=== PATIENT | male | born 1975 | race Caucasian/White ===

== ENCOUNTER 2025-08-22 14:50 | Inpatient (IN) | payer SELFPAY ==
[2025-08-22] VITALS (17 sets, daily range): BP systolic 136–187; BP diastolic 61–87; PULSE 80–104; RESP 12–27; TEMP 36.9–38.4; O2SAT 86–95; BMI 50.1
--- NOTE | 2025-08-22 15:42 | ED_ITS ---
HPI - Abdominal Pain General Chief Complaint: Abdominal Pain Stated Complaint: abd/back/leg px Time Seen by Provider: 08/22/25 15:42 Source: patient Mode of arrival: Family Vehicle History of Present Illness HPI narrative: 50-year-old gentleman morbidly obese presents with abdominal pain radiating to the back and then down the left groin started sudden onset this morning. He did have 2 bowel movements earlier. Patient denies any chest pain, hematuria, penile discharge, testicular pain, diaphoresis, nausea, vomiting, fever, chills, body aches. Other than what is stated 14 point review of system is negative Related Data Allergies Allergy/AdvReac Type Severity Reaction Status Date / Time No Known Drug Allergies Allergy Verified 08/22/25 19:57 Review of Systems Review of Systems ROS Unobtainable: All systems reviewed & are unremarkable except as noted in HPI and below Exam Narrative Exam Narrative: GENERAL: [50] year old patient appears stated age. Well-developed patient, in mild distress. HEAD: Atraumatic. Normocephalic. EYES: Pupils equal round and reactive. Extraocular motions intact. No scleral icterus. No injection or drainage. NECK: Trachea midline. Non tender CARDIOVASCULAR: Regular rate and rhythm without murmurs, gallops, or rubs. RESPIRATORY: Clear to auscultation. Breath sounds equal bilaterally. No wheezes, rales, or rhonchi. GASTROINTESTINAL: Abdomen soft, non-tender, nondistended. EXTREMITIES: No edema or joint tenderness. BACK: Nontender without deformity or crepitance. No flank tenderness. NEURO: AOx3. SKIN: No rash or erythema of visible areas Initial Vital Signs Initial Vital Signs: Vital Signs Temperature 98.4 F 08/22/25 15:11 Pulse Rate 80 08/22/25 15:11 Respiratory Rate 16 08/22/25 15:11 Blood Pressure 148/66 H 08/22/25 15:11 Pulse Oximetry 94 08/22/25 15:11 Oxygen Delivery Method Room Air 08/22/25 15:11 Course Orders Ordered: ED Orders 08/22/25 15:21 EKG-12 Lead Stat 08/22/25 15:53 CT abdomen pelvis w con Stat 08/22/25 18:00 Complete Blood Count AUTO DIFF Stat Comprehensive Metabolic Panel Stat Lipase Stat Ondansetron HCl (Ondansetron 4 Mg/2 Ml Inj) 4 mg IV NOW PRN PRN Reason: Nausea And Vomiting Ondansetron HCl (Ondansetron 4 Mg Odt) 4 mg PO NOW PRN PRN Reason: Nausea And Vomiting Discontinued Medications Hydromorphone HCl (Hydromorphone 1 Mg/Ml Syringe) 1 mg IV NOW ONE Stop: 08/22/25 15:54 Last Admin: 08/22/25 18:08 Dose: 1 mg Documented By: ABEL Lactated Ringer's (Lactated Ringers) 1,000 mls @ 1,000 mls/hr IV BOLUS ONE Stop: 08/22/25 16:52 Last Admin: 08/22/25 18:15 Dose: 1,000 mls/hr Documented By: ABEL Piperacillin Sod/Tazobactam (Sod 4.5 gm/ Sodium Chloride) 100 mls @ 200 mls/hr IV NOW ONE Stop: 08/22/25 18:47 Last Infusion: 08/22/25 19:05 Dose: 0 mls/hr Documented By: Admin: 08/22/25 18:59 Dose: 200 mls/hr Documented By: ADRIANA Ketorolac Tromethamine (Ketorolac 30 Mg/Ml Vial) 15 mg IV NOW ONE Stop: 08/22/25 15:54 Last Admin: 08/22/25 18:08 Dose: 15 mg Documented By: ABEL Vital Signs Vital signs: Vital Signs - 8 hr 08/22/25 15:11 Temperature 98.4 F Pulse Rate 80 Respiratory Rate 16 Blood Pressure 148/66 H Pulse Oximetry 94 Oxygen Delivery Method Room Air MDM - Abdominal Pain Lab Data 08/22/25 18:00 08/22/25 18:00 Labs: Lab Results 08/22/25 Range/Units 18:00 WBC 17.3 H (4.5-11.0) X10^3/uL RBC 4.14 L (4.5-5.9) X10^6/uL Hgb 11.9 L (13.5-17.5) g/dL Hct 36.9 L (41-53) % MCV 89.2 (80-100) fL MCH 28.9 (26-34) PG MCHC 32.4 (30-36) % RDW 13.7 (11.6-14.8) % Plt Count 446 H (150-400) X10^3/uL Neut % (Auto) Not Reportable Lymph % (Auto) Not Reportable [place] % (Auto) Not Reportable Eos % (Auto) Not Reportable Baso % (Auto) Not Reportable Lymph # (Auto) Not Reportable [place] # (Auto) Not Reportable Baso # (Auto) Not Reportable Total Counted 100 Seg Neutrophils % 61.0 (38-70) % Band Neutrophils % 29.0 H (3-7) % Lymphocytes % (Manual) 5.0 L (25-45) % Monocytes % (Manual) 3.0 (2-11) % Basophils % (Manual) 2.0 H (0-1) % Neutrophils # (Manual) 73848 H (2417-3407) /uL RBC Morphology Normal morphology Sodium 137 (137-145) mmol/L Potassium 4.2 (3.4-5.1) mmol/L Chloride 103 (98-107) mmol/L Carbon Dioxide 25 (22-32) mmol/L BUN 17 (9-20) mg/dL Creatinine 0.72 (0.66-1.25) mg/dL Estimated GFR > 60 (>60) mL/min BUN/Creatinine Ratio 23.6 H (6-22) Glucose 116 H (70-99) mg/dL Calcium 9.2 (8.4-10.2) mg/dL Total Bilirubin 1.0 (0.2-1.3) mg/dL AST 26 (17-59) IU/L ALT 39 (<50) IU/L Alkaline Phosphatase 75 (38-126) U/L Total Protein 8.6 H (6.3-8.2) g/dL Albumin 4.7 (3.5-5.0) g/dL Globulin 3.9 (1.7-4.1) g/dL Albumin/Globulin Ratio 1.2 (1.0-2.8) Lipase 36 (23-300) U/L ECG Data Interpretation: Sinus Tach HR 101 CO 166 QRS [address]-t wave change No pprevious ekg to compare MDM Narrative Medical decision making narrative: All lab work, vital signs, nurse triage note, medication list, previous ER visits, and all imaging studies reviewed. CT scan showed gastric perforation with resultant pneumoperitoneum and complex fluid within the abdomen. masslike thickening of the distal gastric body concerning for possible mass lesion. WBC 17.3 hemoglobin 11.9 platelet 446 sodium 137 potassium 4.2 chloride 103 CO2 25 and 17 creatinine 0.72 glucose 116 T bili 1.0 LFTs normal lipase 36. case discussed with Dr. San surgeon on-call who will be taking the patient directly to the OR. differential diagnosis kidney stone kidney infection diverticulitis constipation pancreatitis perforation. Discharge Plan Departure Patient Disposition: Admitted As Inpatient Clinical Impression: Gastric perforation Admit Date/Time: 08/22/25 19:16 Admit Provider: Reginaldo San
--- NOTE | 2025-08-22 15:53 | DI.CT.S_ITS ---
PROCEDURE: CT ABDOMEN PELVIS W CON INDICATIONS: abd back pain TECHNIQUE: After the administration of intravenous contrast, axial sections acquired from the lung bases to the pubic symphysis. Coronal and sagittal reformats were performed. For radiation dose reduction, the following was used: automated exposure control, adjustment of mA and/or kV according to patient size. COMPARISON: None. FINDINGS: Image quality: Diagnostic. Lower Chest: Bibasilar atelectasis. ABDOMEN: Liver: No solid mass. Gallbladder: Layering sludge. No calcified stone. Biliary ducts: No biliary dilation. Pancreas: No ductal dilation. Spleen: Size is within normal limits. Adrenal Glands: No adrenal nodules. Kidneys and Ureters: No hydronephrosis. No solid mass. No complex renal cystic lesion which requires follow up. Stomach and Bowel: Perforation of the gastric lesser curvature which results in large volume pneumoperitoneum and complex fluid within the dependent pelvis and along the bilateral dependent peritoneum. There is moderate stranding and thickening of the stomach distal body, which may be reactive however cannot exclude underlying mass lesion. Mural thickening of the small bowel in the inferior abdomen, favored to be reactive. There is diverticulosis without diverticulitis of the sigmoid colon. There is a normal appendix. Peritoneum: No abnormal intraperitoneal fluid. No free air. Ventral Wall: No significant ventral hernia. Abdominal Nodes: No retroperitoneal or mesenteric adenopathy by size criteria. Vessels: Aorta and inferior vena cava are normal in size. PELVIS: Pelvic Organs: Unremarkable. Bladder: No bladder wall thickening, accounting for underdistention. Pelvic Nodes: No enlarged lymph nodes. Miscellaneous: No inguinal hernias are seen. Bones: No aggressive osseous abnormality. Chronic compression deformity of L1 which results in 50 percent anterior and central vertebral body height loss. IMPRESSION: 1. Gastric perforation with resultant pneumoperitoneum and complex fluid within the abdomen. 2. Masslike thickening of the distal gastric body, concerning for possible mass lesion. Recommend correlation with direct visualization (intra-operative versus endoscopy). Communication: The above findings were discussed with the ordering clinician, Dr. Venegas of the emergency room, by Dr. Beckwith via telephone on 08/22/2025 at 6:46 p.m. PST. Dictated by: Manjeet Beckwith M.D. on 08/22/2025 at 18:40 Approved by: Manjeet Beckwith M.D. on 08/22/2025 at 18:46
[2025-08-22] MEDS: KETOROLAC 30 MG/ML VIAL 15 MG IV (18:08)
[2025-08-22] MEDS: LACTATED RINGERS 1,000 ML 1000 ML IV (18:15)
[2025-08-22 18:16] LABS: Hematocrit 36.9 % (41-53); Hemoglobin 11.9 g/dL (13.5-17.5); Mean Corpuscular HGB Conc 32.4 % (30-36); Mean Corpuscular Hemoglobin 28.9 PG (26-34); Mean Corpuscular Volume 89.2 fL (80-100); Platelet Count 446 X10^3/uL (150-400)
[2025-08-22 18:36] LABS: Alanine Aminotransferase 39 IU/L (<50); Albumin 4.7 g/dL (3.5-5.0); Albumin Globulin Ratio 1.2 (1.0-2.8); Alkaline Phosphatase 75 U/L (38-126); Blood Urea Nitrogen 17 mg/dL (9-20); Calcium 9.2 mg/dL (8.4-10.2); Carbon Dioxide 25 mmol/L (22-32); Chloride 103 mmol/L (98-107); Estimated Glomerular Filt Rate > 60 mL/min (>60); Globulin 3.9 g/dL (1.7-4.1); Glucose 116 mg/dL (70-99); HEMOLYSIS < 15 (0-50); Lipase 36 U/L (23-300); Potassium 4.2 mmol/L (3.4-5.1); Sodium 137 mmol/L (137-145); Total Protein 8.6 g/dL (6.3-8.2)
[2025-08-22 18:49] LABS: Add Manual Diff / Slide Review YES
[2025-08-22 18:56] LABS: Band Neutrophils Percent 29.0 % (3-7); Basophils Percent Manual 2.0 % (0-1); Lymphocytes Percent Manual 5.0 % (25-45); Monocytes Percent Manual 3.0 % (2-11); Neutrophils Absolute Manual 15570 /uL (3000-5900); RBC Morphology Normal Morphology; Segmented Neutrophils Percent 61.0 % (38-70); Total Cells Counted 100
[2025-08-22] MEDS: PIPERACILLIN/TAZO 4.5 GM in SODIUM CHLORIDE 0.9% 100 ML IV ×2 (18:59→23:45)
--- NOTE | 2025-08-22 19:19 | P.HP_ITS ---
History of Present Illness History of Present Illness Date Patient Seen: 08/22/25 Time Patient Seen: 19:19 Chief complaint: abd/back/leg px Narrative: Itz Stone is a 50 year old man who presented to the emergency room with several hours of abdominal pain radiating to his back. No changes to his health prior to today. A CT scan showed free air with a likely gastric perforation. Thickening of the distal stomach was noted by the radiologist. He had an EGD and colonoscopy about three year ago at [facility] for GI bleeding. He does not recall any abnormalities on that exam. Meds Home Medications and Allergies Allergies Allergy/AdvReac Type Severity Reaction Status Date / Time No Known Drug Allergies Allergy Verified 08/22/25 15:13 Exam Vital Signs (past 8 hours): - 08/22/25 15:11 Temperature 98.4 F Pulse Rate 80 Respiratory Rate 16 Blood Pressure 148/66 H Pulse Oximetry 94 Oxygen Delivery Method Room Air Oxygen Delivery Method Room Air Narrative Exam Narrative: Abdomen is distended with tunde peritonitis Objective Labs 08/22/25 18:00 08/22/25 18:00 Labs: Laboratory Results - last 24 hr 08/22/25 18:00 WBC 17.3 H RBC 4.14 L Hgb 11.9 L Hct 36.9 L MCV 89.2 MCH 28.9 MCHC 32.4 RDW 13.7 Plt Count 446 H Neut % (Auto) Not Reportable Lymph % (Auto) Not Reportable [place] % (Auto) Not Reportable Eos % (Auto) Not Reportable Baso % (Auto) Not Reportable Lymph # (Auto) Not Reportable [place] # (Auto) Not Reportable Baso # (Auto) Not Reportable Total Counted 100 Seg Neutrophils % 61.0 Band Neutrophils % 29.0 H Lymphocytes % (Manual) 5.0 L Monocytes % (Manual) 3.0 Basophils % (Manual) 2.0 H Neutrophils # (Manual) 50009 H RBC Morphology Normal morphology Sodium 137 Potassium 4.2 Chloride 103 Carbon Dioxide 25 BUN 17 Creatinine 0.72 Estimated GFR > 60 BUN/Creatinine Ratio 23.6 H Glucose 116 H Calcium 9.2 Total Bilirubin 1.0 AST 26 ALT 39 Alkaline Phosphatase 75 Total Protein 8.6 H Albumin 4.7 Globulin 3.9 Albumin/Globulin Ratio 1.2 Lipase 36 Assessment & Plan Assessment and plan (1) Gastric perforation: Status: Acute Plan I explained to Itz that he has a hole in his stomach and needs emergency surgery. I described an exploratory laparotomy, omental patch, washout and placment of two drains. He is receiving antibiotics in the emergency room now. Time-Based Coding :: [TOTAL MINUTES] spent with patient and on the chart (including review of chart, obtaining history, exam, reviewing outside data, placing orders, documenting exam and treatment plan, and counseling patient) on [DATE]. PROFEE Technical Support Director Document charge(s): No
[2025-08-22] MEDS: ALBUTEROL 2.5 MG/3 ML NEB (ADULT) INH (19:25)
--- NOTE | 2025-08-22 19:29 | EKG_ITS ---
[facility] [address] [place] [address] Test Date: 2025-08-22 Pat Name: Itz Stone Department: [facility] Room: 90B Gender: Male Certified Peer Specialist: GRACE : 1975 Requested By: Order Number: [id number] Reading MD: Julian Lea MD Measurements Intervals Elliott Rate: 101 P: 28 MT: 166 QRS: -33 QRSD: 128 T: 37 QT: 352 QTc: 456 Interpretive Statements Sinus tachycardia Left axis deviation Right bundle branch block NO PRIOR TRACING Electronically Signed On 08-23-2025 7:43:02 PST by Julian Lea MD
--- NOTE | 2025-08-22 20:26 | SUR.OPER ---
Supine on padded OR bed, head on pillow, arms secured on padded arm boards at <90 degrees abduction, legs uncrossed, safety belt at thigh, blankets under bilateral arms to pt comfort, final positioning approved by providertape over blanket over lower legs.
[2025-08-22] MEDS: ACETAMINOPHEN IV 1,000 MG/100 ML VIAL 400 MG IV (20:50)
--- NOTE | 2025-08-22 21:43 | P.OP_ITS ---
Operative Date/Time/Diagnoses Date of procedure: 08/22/25 Time of procedure: 21:43 Pre-op diagnosis: Perforated gastric ulcer Post-op diagnosis: same Procedure & Clinicians Procedure: Exploratory laparotomy Omental patch of gastric perforation Peritoneal lavage Same procedure(s) as scheduled: Yes Surgeon: Reginaldo San Assisted?: No Anesthesia Type: General Operative Notes Findings: 1 cm round perforation in the anterior wall of the distal stomach with peritoneal contamination Applied: drain(s) Estimated Blood Loss (mL): 25 Procedure in detail: The patient is a morbidly obese 50-year-old man who presented to the emergency room with abdominal pain and was found to have a perforated gastric ulcer on CT. He was consented for exploratory laparotomy. The patient was on Zosyn. The patient was brought to the operating room, placed on the table in the supine position and general endotracheal anesthesia was induced. The abdomen was prepped and draped in the usual fashion and a time-out was performed. A 20 cm upper midline incision was created and the abdominal cavity was entered under direct vision. There was copious contamination within the peritoneal cavity indicative of a perforated gastric ulcer. After some exploration a 1 cm round perforation was encountered in the anterior wall of the distal third of the stomach. The surrounding gastric tissue was firm and woody for 2-3 cm around the perforation. An adjacent tongue of omentum was mobilized to create a patch which was secured with 2 2-0 silk sutures to the surrounding serosa. We then irrigated all quadrants of the abdomen with 6 L of warm saline. We then placed two 19 round Indra drains across the omental patch. One drain was brought out through a right stab incision and one drain was brought out through a left stab incision. Some local was injected in his the fascia and the fascia was closed with a running 0 PDS supported by multiple 0 interrupted Vicry l sutures. The skin was closed with franko. Dressings were applied. The patient was awakened and brought to recovery room. Specimen: None Complications: none Post-operative Condition: stable Disposition: PACU
[2025-08-23] VITALS (12 sets, daily range): BP systolic 98–152; BP diastolic 51–70; PULSE 82–91; RESP 13–23; TEMP 36.6–37.2; O2SAT 90–95
[2025-08-23] MEDS: LACTATED RINGERS 1,000 ML 100 ML IV (00:09)
[2025-08-23 00:45] LABS: MRSA (Nasal) PCR NOT DETECTED (Not Detect)
[2025-08-23 05:42] LABS: Add Manual Diff / Slide Review NO; Hematocrit 32.1 % (41-53); Hemoglobin 10.5 g/dL (13.5-17.5); Lymphocytes Absolute Auto 600 /uL (1100-4500); Mean Corpuscular HGB Conc 32.7 % (30-36); Mean Corpuscular Hemoglobin 28.9 PG (26-34); Mean Corpuscular Volume 88.3 fL (80-100); Platelet Count 441 X10^3/uL (150-400)
[2025-08-23 05:45] LABS: Blood Urea Nitrogen 20 mg/dL (9-20); Calcium 8.2 mg/dL (8.4-10.2); Carbon Dioxide 24 mmol/L (22-32); Chloride 104 mmol/L (98-107); Estimated Glomerular Filt Rate > 60 mL/min (>60); Glucose 147 mg/dL (70-99); HEMOLYSIS < 15 (0-50); Magnesium 1.6 mg/dL (1.6-2.3); Potassium 4.5 mmol/L (3.4-5.1); Sodium 137 mmol/L (137-145)
--- NOTE | 2025-08-23 06:28 | PC.NURSE ---
restaurant shift leader RN note pt arrived from PACU, drowsy, oriented x4, VSS, afebrile, SR with BBB, lungs wheezes t/o, RT called and breathing treatment give, O2 sats 88-94% on 2-3L NC, pt snores when asleep, abd large, tender and soft, hypo BS, NGT to R nare, no order for suction, pt denies nausea, midline dsg CDI, x2 LIDIA drains with serosang drainage, c/o abd pain, prn analgesic with effect, meds and labs as ordered, call vasquez within reach, care ongoing
--- NOTE | 2025-08-23 06:48 | PC.NURSE ---
0645-pt bladder scanned, 60ml noted, pt denies need to void at this time
[2025-08-23] MEDS: ALBUTEROL/IPRATROPIUM 3 ML AMPUL INH ×2 (08:40→20:00)
[2025-08-23] MEDS: MAGNESIUM SULFATE 2 GM/50 ML PIGGYBACK IV (08:53)
[2025-08-23] MEDS: PIPERACILLIN/TAZO 4.5 GM in SODIUM CHLORIDE 0.9% 100 ML IV ×3 (08:53→22:33)
--- NOTE | 2025-08-23 09:01 | PM.PN.IH.1 ---
Subjective Subjective Date Patient Seen: 08/23/25 Time Patient Seen: 09:01 Interval history: No major events overnight. Complains of discomfort from NG tube. Exam Vital Signs (past 8 hours): - 08/23/25 02:00 08/23/25 07:40 08/23/25 08:40 Pulse Rate 82 86 83 Respiratory Rate 13 23 16 Blood Pressure 109/52 L 116/53 L Pulse Oximetry 95 90 L 92 Oxygen Delivery Method Nasal Cannula Oxygen Flow Rate 2 0 3 Fraction of Inspired Oxygen 32 Fraction of Inspired Oxygen 32 SaO2/FiO2 Ratio 281 Oxygen Delivery Method Nasal Cannula Oxygen Flow Rate 3 Narrative Exam Narrative: Drains with scant serosanguinous output Dressings CDI Objective Labs 08/23/25 05:10 08/23/25 05:10 Labs: Laboratory Results - last 24 hr 08/22/25 08/22/25 08/23/25 18:00 23:00 05:10 WBC 17.3 H 17.0 H RBC 4.14 L 3.64 L Hgb 11.9 L 10.5 L Hct 36.9 L 32.1 L MCV 89.2 88.3 MCH 28.9 28.9 MCHC 32.4 32.7 RDW 13.7 13.5 Plt Count 446 H 441 H Neut % (Auto) Not Reportable 89.7 H Lymph % (Auto) Not Reportable 3.5 L [place] % (Auto) Not Reportable 6.7 Eos % (Auto) Not Reportable 0.0 L Baso % (Auto) Not Reportable 0.1 Neut # (Auto) 56285 H Lymph # (Auto) Not Reportable 600 L [place] # (Auto) Not Reportable 1100 H Eos # (Auto) 0 Baso # (Auto) Not Reportable 0 Total Counted 100 Seg Neutrophils % 61.0 Band Neutrophils % 29.0 H Lymphocytes % (Manual) 5.0 L Monocytes % (Manual) 3.0 Basophils % (Manual) 2.0 H Neutrophils # (Manual) 12472 H RBC Morphology Normal morphology Sodium 137 137 Potassium 4.2 4.5 Chloride 103 104 Carbon Dioxide 25 24 BUN 17 20 Creatinine 0.72 0.95 Estimated GFR > 60 > 60 BUN/Creatinine Ratio 23.6 H 21.1 Glucose 116 H 147 H Calcium 9.2 8.2 L Magnesium 1.6 Total Bilirubin 1.0 AST 26 ALT 39 Alkaline Phosphatase 75 Total Protein 8.6 H Albumin 4.7 Globulin 3.9 Albumin/Globulin Ratio 1.2 Lipase 36 Nasal Screen MRSA (PCR) Not detected PFSH Social History household members: spouse Smoking Status: Current every day smoker alcohol intake: current Assessment & Plan Assessment and plan (1) Gastric perforation: Status: Acute Plan Postop day 1 following exploratory laparotomy with omental patch for perforated gastric ulcer Continue NG tube and drains Continue Zosyn, Protonix Start Lovenox Out of bed Time-Based Coding :: [TOTAL MINUTES] spent with patient and on the chart (including review of chart, obtaining history, exam, reviewing outside data, placing orders, documenting exam and treatment plan, and counseling patient) on [DATE]. Quality VTE Deep Vein Thrombosis/Pulmonary Embolism Present on Admission: No PROFEE Machine Feeder Floorperson Document charge(s): No
[2025-08-23] MEDS: SODIUM CHLORIDE 0.9% 1,000 ML 150 ML IV ×3 (09:45→22:33)
[2025-08-23] MEDS: ENOXAPARIN 40 MG/0.4 ML SYRINGE SUBCUT ×2 (11:46→20:11)
[2025-08-23] MEDS: PANTOPRAZOLE 40 MG VIAL IV ×2 (11:46→20:11)
[2025-08-24] VITALS (22 sets, daily range): BP systolic 108–161; BP diastolic 51–70; PULSE 81–96; RESP 10–25; TEMP 36.7–36.8; O2SAT 90–98
[2025-08-24] MEDS: SODIUM CHLORIDE 0.9% 1,000 ML 150 ML IV ×2 (05:14→12:00)
[2025-08-24 05:20] LABS: Add Manual Diff / Slide Review NO; Hematocrit 30.8 % (41-53); Hemoglobin 9.9 g/dL (13.5-17.5); Lymphocytes Absolute Auto 900 /uL (1100-4500); Mean Corpuscular HGB Conc 32.3 % (30-36); Mean Corpuscular Hemoglobin 28.8 PG (26-34); Mean Corpuscular Volume 89.1 fL (80-100); Platelet Count 390 X10^3/uL (150-400)
[2025-08-24 05:29] LABS: Blood Urea Nitrogen 16 mg/dL (9-20); Calcium 8.3 mg/dL (8.4-10.2); Carbon Dioxide 27 mmol/L (22-32); Chloride 104 mmol/L (98-107); Estimated Glomerular Filt Rate > 60 mL/min (>60); Glucose 106 mg/dL (70-99); HEMOLYSIS < 15 (0-50); Potassium 4.1 mmol/L (3.4-5.1); Sodium 138 mmol/L (137-145)
[2025-08-24] MEDS: PIPERACILLIN/TAZO 4.5 GM in SODIUM CHLORIDE 0.9% 100 ML IV ×3 (06:22→22:40)
--- NOTE | 2025-08-24 06:57 | PC.NURSE ---
pt a&ox4, c/o mod amt pain in abd, prn analgesics with effect, lungs exp wheezes and decreased, O2 sats >92% on3L NC when awake, desats to 70s when asleep with mouth open/snoring, oximask 4L placed and O2 sats improved when sleeping, NGT resecured, draining bile, pt c/o of NGT being irritating, abd round soft with no BS, pt denies flatus, midline dsg CDI, bilat abd LIDIA drains putting out small amts serous/serosang drainage, voiding dark jones yellow urine via urinal, call vasquez within reach, care ongoing
[2025-08-24 07:11] LABS: Magnesium 2.4 mg/dL (1.6-2.3)
[2025-08-24] MEDS: PANTOPRAZOLE 40 MG VIAL IV ×2 (09:29→22:39)
[2025-08-24] MEDS: ENOXAPARIN 40 MG/0.4 ML SYRINGE SUBCUT ×2 (09:29→22:40)
[2025-08-24] MEDS: ALBUTEROL/IPRATROPIUM 3 ML AMPUL INH ×2 (09:42→20:14)
[2025-08-24] MEDS: BENZOCAINE/MENTHOL 1 LOZ PKT 1 EACH PO (09:47)
--- NOTE | 2025-08-24 14:17 | PM.PN.IH.1 ---
Subjective Subjective Date Patient Seen: 08/24/25 Time Patient Seen: 12:30 Interval history: POD#2 repair gastric perforation with omental patch C/O sore throat associated with NGT NGT minimal output LIDIA drains 30cc total last night, serous Exam Vital Signs (past 8 hours): - 08/24/25 07:00 08/24/25 08:13 08/24/25 13:00 Temperature 98.0 F 98.1 F Pulse Rate 81 86 Respiratory Rate 17 18 Blood Pressure 161/70 H 136/59 L Pulse Oximetry 97 93 Oxygen Delivery Method Nasal Cannula Oximask Oxygen Flow Rate 4 0 Fraction of Inspired Oxygen 32 SaO2/FiO2 Ratio 281 Oxygen Delivery Method Nasal Cannula,Oximask Oxygen Flow Rate 0 Narrative Exam Narrative: Midline incision dressing CDI, no erythema, tenderness appropriate for postop, LIDIA drains serous, no GI contents Objective Labs 08/24/25 05:00 08/24/25 05:00 Labs: Laboratory Results - last 24 hr 08/24/25 05:00 WBC 16.2 H RBC 3.45 L Hgb 9.9 L Hct 30.8 L MCV 89.1 MCH 28.8 MCHC 32.3 RDW 13.9 Plt Count 390 Neut % (Auto) 85.2 H Lymph % (Auto) 5.8 L [place] % (Auto) 8.3 Eos % (Auto) 0.4 L Baso % (Auto) 0.3 Neut # (Auto) 66131 H Lymph # (Auto) 900 L [place] # (Auto) 1300 H Eos # (Auto) 100 Baso # (Auto) 0 Sodium 138 Potassium 4.1 Chloride 104 Carbon Dioxide 27 BUN 16 Creatinine 0.71 Estimated GFR > 60 BUN/Creatinine Ratio 22.5 H Glucose 106 H Calcium 8.3 L Magnesium 2.4 H PFSH Social History household members: spouse Smoking Status: Current every day smoker alcohol intake: current Assessment & Plan Assessment and plan (1) Gastric perforation: Status: Acute Plan POD#2 gastric perforation Continue PPI D/C NGT today Sips of non-carbonated clears Monitor LIDIA output Ambulate Decrease IVF rate DVT prophylaxis, Lovenox Time-Based Coding :: [TOTAL MINUTES] spent with patient and on the chart (including review of chart, obtaining history, exam, reviewing outside data, placing orders, documenting exam and treatment plan, and counseling patient) on [DATE]. Quality VTE Deep Vein Thrombosis/Pulmonary Embolism Present on Admission: No IH PROFEE Electron Beam Machine Welder Setter Document charge(s): Yes Charge Codes Subsequent inpatient/observation care: [id number]
--- NOTE | 2025-08-24 15:24 | CM.DANOTE ---
Initial DCP Assessment Note. Review EMR and PT Interview. Met with patient at bedside to discuss discharge needs.PT is alert x 4 sitting up in chair. No acute distress. Independent. Lives with family.. Payor:??Wilder GUILLEN PCP: Summary & Plan: 50 y/o male arrived to the ED via POV c/o abd pain. Admitted INPT. Dx. Gastric Perforation. Plan: Surgery. Advance diet as tolerate. pain control. Discharge Planning/Care Management CM Discharge Assessment Start: 08/22/25 19:18 Freq: Status: Active Protocol: Document 08/24/25 15:14 SM (Rec: 08/24/25 15:24 [id number]) Discharge Planning Assessment Assigned Discharge Ember Block RN Certified Composites Technician Provider Dr. Phillips Insurance Comment [place]. [facility] [place]. Advance Directives? No History Provided By Patient,Family Member Prior Living Apartment/Condo Arrangements Household Members spouse Type of Drives own vehicle transporation used prior to admit Independent with ADL Yes 's Is patient alert and Yes oriented? Caregiver for No Another Barriers to No Discharge Referrals Initiated None needed Review Status In Process Please Provide Date 08/24/25 Initial DC Assessment Was Performed Next Review Type Continued Stay Review Document 08/24/25 15:24 SM (Rec: 08/24/25 15:24 [id number]) Discharge Planning Assessment Assigned Discharge Ember Block RN Certified Composites Technician Provider Dr. Phillips Insurance Comment [place]. [facility] [place] Advance Directives? No History Provided By Patient,Family Member Prior Living Apartment/Condo Arrangements Household Members spouse Type of Drives own vehicle transporation used prior to admit Independent with ADL Yes 's Is patient alert and Yes oriented? Caregiver for No Another Barriers to No Discharge Referrals Initiated None needed Review Status In Process Please Provide Date 08/24/25 Initial DC Assessment Was Performed Next Review Type Continued Stay Review
[2025-08-24] MEDS: SODIUM CHLORIDE 0.9% 1,000 ML 100 ML IV (22:40)
[2025-08-25] VITALS (34 sets, daily range): BP systolic 131–145; BP diastolic 58–65; PULSE 79–97; RESP 16–26; TEMP 36.7–37.4; O2SAT 87–99
[2025-08-25] MEDS: PIPERACILLIN/TAZO 4.5 GM in SODIUM CHLORIDE 0.9% 100 ML IV ×3 (06:31→22:45)
[2025-08-25] MEDS: ALBUTEROL/IPRATROPIUM 3 ML AMPUL INH ×2 (07:54→18:37)
[2025-08-25] MEDS: ENOXAPARIN 40 MG/0.4 ML SYRINGE SUBCUT ×2 (08:19→20:23)
[2025-08-25] MEDS: PANTOPRAZOLE 40 MG VIAL IV ×2 (08:20→20:24)
--- NOTE | 2025-08-25 08:57 | PM.PN.IH.1 ---
Subjective Subjective Date Patient Seen: 08/25/25 Time Patient Seen: 08:57 Interval history: POD#3 Tolerated clear liquids yesterday No n/v c/o fluid in his lungs due to not receiving his home Lasix dose Exam Vital Signs (past 8 hours): - 08/25/25 04:46 08/25/25 07:00 08/25/25 07:55 Temperature 99.4 F Pulse Rate 84 82 Respiratory Rate 19 18 Blood Pressure 145/65 H Pulse Oximetry 99 94 Oxygen Delivery Method Nasal Cannula Oximask Room Air Oxygen Flow Rate 3 Fraction of Inspired Oxygen 24 SaO2/FiO2 Ratio 391 Oxygen Delivery Method Room Air Oxygen Flow Rate 3 Const General: comfortable Resp Effort & Inspection: normal respiratory effort Cardio Rate: regular rate GI Other: ABD: soft, appropriate tenderness for postop; midline dressing CDI, drains serous Extrem General: no calf tenderness Objective Labs 08/24/25 05:00 08/24/25 05:00 PFS Social History household members: spouse Smoking Status: Current every day smoker alcohol intake: current Assessment & Plan Assessment and plan (1) Gastric perforation: Status: Acute Plan POD#3 oversew gastric perf, omental patch Tolerated clears yesterday No n/v Advance to full liquids LIDIA output declinin/355/80; 50/120/30, serous character, without GI contents Oral contrast study not available on ; no clinical evidence for leak HLIV Resume home meds Ambulating Lovenox/SCDs for VTE prophylaxis I.S. for pulmonary toilet Time-Based Coding :: [TOTAL MINUTES] spent with patient and on the chart (including review of chart, obtaining history, exam, reviewing outside data, placing orders, documenting exam and treatment plan, and counseling patient) on [DATE]. Quality VTE Deep Vein Thrombosis/Pulmonary Embolism Present on Admission: No IH PROFEE Facility Maintenance Worker Document charge(s): Yes Charge Codes Subsequent inpatient/observation care: [id number]
[2025-08-25] MEDS: FUROSEMIDE 20 MG TABLET PO (08:58)
[2025-08-25] MEDS: GABAPENTIN 600 MG TABLET PO ×2 (08:59→20:22)
[2025-08-25] MEDS: CYCLOBENZAPRINE 10 MG TABLET PO ×2 (08:59→20:22)
--- NOTE | 2025-08-25 10:54 | CM.DPC ---
DCP Cont. Reviewed EMR and team rounds for pt's medical status and updates. Per Hospitalist, pt is advancing to full clears diet today. Monitoring for any final home d/c needs.
[2025-08-25] MEDS: ATORVASTATIN 20 MG TABLET PO (20:22)
[2025-08-26] VITALS (20 sets, daily range): BP systolic 100–122; BP diastolic 51–64; PULSE 65–94; RESP 16–20; TEMP 36.6–37.7; O2SAT 86–100
[2025-08-26 06:33] LABS: Albumin 3.3 g/dL (3.5-5.0); Blood Urea Nitrogen 11 mg/dL (9-20); Calcium 8.1 mg/dL (8.4-10.2); Carbon Dioxide 28 mmol/L (22-32); Chloride 102 mmol/L (98-107); Estimated Glomerular Filt Rate > 60 mL/min (>60); Glucose 108 mg/dL (70-99); HEMOLYSIS 217 (0-50); Phosphorous 3.4 mg/dL (2.5-4.5); Potassium 5.3 mmol/L (3.4-5.1); Sodium 135 mmol/L (137-145)
[2025-08-26] MEDS: PIPERACILLIN/TAZO 4.5 GM in SODIUM CHLORIDE 0.9% 100 ML IV ×3 (06:33→23:12)
[2025-08-26] MEDS: GABAPENTIN 600 MG TABLET PO ×2 (08:28→20:09)
[2025-08-26] MEDS: CYCLOBENZAPRINE 10 MG TABLET PO ×2 (08:28→20:09)
[2025-08-26] MEDS: FUROSEMIDE 20 MG TABLET PO (08:28)
[2025-08-26] MEDS: MELOXICAM 7.5 MG TABLET 15 MG PO (08:30)
[2025-08-26] MEDS: SODIUM CHLORIDE 0.9% FLUSH 10 ML IV ×2 (08:31→20:09)
[2025-08-26] MEDS: ENOXAPARIN 40 MG/0.4 ML SYRINGE SUBCUT ×2 (08:31→20:07)
[2025-08-26] MEDS: PANTOPRAZOLE 40 MG VIAL IV ×2 (08:31→20:08)
[2025-08-26] MEDS: ALBUTEROL/IPRATROPIUM 3 ML AMPUL INH ×2 (08:36→19:48)
--- NOTE | 2025-08-26 12:13 | PM.PN.IH.1 ---
Subjective Subjective Date Patient Seen: 08/26/25 Time Patient Seen: 12:13 Interval history: POD#4 oversew gastric perf/omental patch No n/v Tolerating full liquids Drains continue to decline 25/30cc per shift, serous Ambulating Exam Vital Signs (past 8 hours): - 08/26/25 08:25 08/26/25 08:28 08/26/25 08:28 Pulse Rate 85 84 Respiratory Rate 20 Blood Pressure 122/60 122/61 Pulse Oximetry 96 Oxygen Delivery Method Room Air Oxygen Flow Rate 0 08/26/25 08:36 Pulse Rate 84 Respiratory Rate 16 Blood Pressure Pulse Oximetry 100 Oxygen Delivery Method Room Air Oxygen Flow Rate Fraction of Inspired Oxygen 21 SaO2/FiO2 Ratio 433 Oxygen Delivery Method Room Air Oxygen Flow Rate 0 Narrative Exam Narrative: Const General: comfortable and no acute distress Orientation: alert and oriented x3 Resp Effort & Inspection: normal respiratory effort and able to speak in complete sentences Cardio Rate: regular rate GI Palpation: soft, drains serous, midline dressing CDI Extrem General: no pedal edema and no calf tenderness Objective Labs 08/24/25 05:00 08/26/25 06:07 Labs: Laboratory Results - last 24 hr 08/26/25 06:07 Sodium 135 L Potassium 5.3 H D Chloride 102 Carbon Dioxide 28 BUN 11 Creatinine 0.49 L Estimated GFR > 60 BUN/Creatinine Ratio 22.4 H Glucose 108 H Calcium 8.1 L Phosphorus 3.4 Albumin 3.3 L PFSH Social History household members: spouse Smoking Status: Current every day smoker alcohol intake: current Assessment & Plan Assessment and plan (1) Gastric perforation: Status: Acute Plan POD#4 repair gastric perforation Advance diet to regular D/C tele Floor status Possible home tomorrow Drain volumes continue to decline, serous character Time-Based Coding :: [TOTAL MINUTES] spent with patient and on the chart (including review of chart, obtaining history, exam, reviewing outside data, placing orders, documenting exam and treatment plan, and counseling patient) on [DATE]. Quality VTE Deep Vein Thrombosis/Pulmonary Embolism Present on Admission: No [facility] PROFEE Salesperson Hearing Aids Document charge(s): Yes Charge Codes Subsequent inpatient/observation care: [id number]
[2025-08-26] MEDS: ATORVASTATIN 20 MG TABLET PO (20:09)
[2025-08-27] VITALS (28 sets, daily range): BP systolic 106–114; BP diastolic 56–57; PULSE 46–98; RESP 16–19; TEMP 36.9–37.2; O2SAT 82–100
[2025-08-27] MEDS: PIPERACILLIN/TAZO 4.5 GM in SODIUM CHLORIDE 0.9% 100 ML IV ×3 (06:20→23:08)
--- NOTE | 2025-08-27 08:18 | DI.RAD.S_ITS ---
PROCEDURE: XR CHEST 2V INDICATIONS: dyspnea, wheeze, increased O2 requirement TECHNIQUE: 2 views of the chest were acquired. COMPARISON: [facility], CR, XR CHEST 2 VIEWS, 10/16/2023, 10:12. FINDINGS: Surgical changes and devices: None. Lungs and pleura: Generalized interstitial prominence is seen. Mild, streaky opacities are seen at the lung bases. Low lung volumes are noted. This causes a crowded appearance to the lung markings and limits evaluation. No large pneumothorax or large pleural effusions are seen. Mediastinum: The cardiac contours are within normal limits. The aorta demonstrates calcification and tortuosity. Bones and chest wall: No suspicious bony abnormalities. Soft tissues appear unremarkable. IMPRESSION: Low lung volumes with interstitial prominence, which may be related to pulmonary edema or artifact. Presumed atelectasis is seen at the lung bases. Differential diagnosis includes minimal/early infiltrate, yet this is considered to be less likely. Dictated by: Fantasma Hammond M.D. on 08/27/2025 at 9:10 Approved by: Fantasma Hammond M.D. on 08/27/2025 at 9:12
[2025-08-27 08:24] LABS: Albumin 3.4 g/dL (3.5-5.0); Blood Urea Nitrogen 17 mg/dL (9-20); Calcium 8.6 mg/dL (8.4-10.2); Carbon Dioxide 32 mmol/L (22-32); Chloride 101 mmol/L (98-107); Estimated Glomerular Filt Rate > 60 mL/min (>60); Glucose 113 mg/dL (70-99); HEMOLYSIS < 15 (0-50); Phosphorous 3.3 mg/dL (2.5-4.5); Potassium 3.7 mmol/L (3.4-5.1); Sodium 137 mmol/L (137-145)
--- NOTE | 2025-08-27 08:24 | P.PN_ITS ---
Subjective Subjective Date Patient Seen: 08/27/25 Time Patient Seen: 08:24 Interval history: POD#5 oversew gastric perforation Tolerated regular diet with emesis +BM overnight Pain controlled Ambulating Exam Vital Signs (past 8 hours): Fraction of Inspired Oxygen 21 SaO2/FiO2 Ratio 433 Oxygen Delivery Method Room Air Oxygen Flow Rate 3 Narrative Exam Narrative: Const General: comfortable and no acute distress Orientation: alert and oriented x3 Resp Effort & Inspection: normal respiratory effort and able to speak in complete sentences, audible wheeze, increased O2 requirement overnight Cardio Rate: regular rate GI Palpation: soft, midline dressing CDI, drains serous-removed today, tenderness appropriate for postop Extrem General: no pedal edema and no calf tenderness Objective Labs 08/24/25 05:00 08/26/25 06:07 [facility] Social History household members: spouse Smoking Status: Current every day smoker alcohol intake: current Assessment & Plan Assessment and plan (1) Gastric perforation: Status: Acute Plan POD#5 oversew gastric perforation, omental patch Check CXR for audible wheeze, increased O2 requirement, does not use CPAP at home, has nebulizer for albuterol at home Repeat K, high this morning but normal yesterday, no K supplement Possible home soon, monitor respiratory status Time-Based Coding :: [TOTAL MINUTES] spent with patient and on the chart (including review of chart, obtaining history, exam, reviewing outside data, placing orders, documenting exam and treatment plan, and counseling patient) on [DATE]. Quality VTE Deep Vein Thrombosis/Pulmonary Embolism Present on Admission: No [facility] PROFEE Case Picker Document charge(s): Yes Charge Codes Subsequent inpatient/observation care: [id number]
[2025-08-27] MEDS: SODIUM CHLORIDE 0.9% FLUSH 10 ML IV ×2 (08:30→20:58)
[2025-08-27] MEDS: FUROSEMIDE 20 MG TABLET PO (08:31)
[2025-08-27] MEDS: GABAPENTIN 600 MG TABLET PO ×2 (08:31→20:58)
[2025-08-27] MEDS: ENOXAPARIN 40 MG/0.4 ML SYRINGE SUBCUT ×2 (08:31→20:57)
[2025-08-27] MEDS: MELOXICAM 7.5 MG TABLET 15 MG PO (08:31)
[2025-08-27] MEDS: PANTOPRAZOLE 40 MG VIAL IV ×2 (08:31→20:57)
[2025-08-27] MEDS: CYCLOBENZAPRINE 10 MG TABLET PO ×2 (08:31→20:58)
[2025-08-27] MEDS: ALBUTEROL/IPRATROPIUM 3 ML AMPUL INH ×2 (08:57→19:02)
--- NOTE | 2025-08-27 12:39 | PC.NURSE ---
Day shift: Pt tolerating meals, three formed bowel movements. Up in halls with ambulating with FWW. Care ongoing.
[2025-08-27] MEDS: ATORVASTATIN 20 MG TABLET PO (20:57)
[2025-08-28 03:08] VITALS: PULSE 83; O2SAT 95
[2025-08-28] MEDS: PIPERACILLIN/TAZO 4.5 GM in SODIUM CHLORIDE 0.9% 100 ML IV (06:38)
[2025-08-28 07:13] LABS: Albumin 3.1 g/dL (3.5-5.0); Blood Urea Nitrogen 14 mg/dL (9-20); Calcium 8.6 mg/dL (8.4-10.2); Carbon Dioxide 35 mmol/L (22-32); Chloride 99 mmol/L (98-107); Estimated Glomerular Filt Rate > 60 mL/min (>60); Glucose 100 mg/dL (70-99); HEMOLYSIS < 15 (0-50); Phosphorous 4.3 mg/dL (2.5-4.5); Potassium 4.0 mmol/L (3.4-5.1); Sodium 139 mmol/L (137-145)
[2025-08-28 08:36] VITALS: BP 134/60; PULSE 68; RESP 20; TEMP 36.7; O2SAT 92
[2025-08-28] MEDS: GABAPENTIN 600 MG TABLET PO (08:39)
[2025-08-28] MEDS: FUROSEMIDE 20 MG TABLET PO (08:39)
[2025-08-28] MEDS: CYCLOBENZAPRINE 10 MG TABLET PO (08:39)
[2025-08-28] MEDS: ENOXAPARIN 40 MG/0.4 ML SYRINGE SUBCUT (08:39)
[2025-08-28] MEDS: SODIUM CHLORIDE 0.9% FLUSH 10 ML IV (08:39)
[2025-08-28] MEDS: PANTOPRAZOLE 40 MG VIAL IV (08:40)
[2025-08-28] MEDS: MELOXICAM 7.5 MG TABLET 15 MG PO (08:41)
--- NOTE | 2025-08-28 09:04 | PC.NURSE ---
Pt stable this morning, denies nausea and pain. Vital signs stable. Pt's at bedside. + Bowel tones. Dressings to abdomen CDI. Pt has 2 blisters on upper, inner LUE, one is quite large and still fluid-filled. Re-dressed both with mepilex. Pt hopeful to DC home today. Will continue to monitor.
[2025-08-28 09:54] VITALS: PULSE 84; RESP 18; O2SAT 93
[2025-08-28] MEDS: ALBUTEROL/IPRATROPIUM 3 ML AMPUL INH (09:54)
--- NOTE | 2025-08-28 10:54 | PM.DS.IH.1 ---
History of Present Illness History of Present Illness Date Patient Seen: 08/28/25 Time Patient Seen: 10:54 Chief complaint: abd/back/leg px Discharge Providers Provider Date of admission: 08/22/25 23:02 Discharge Date: 08/28/25 Primary care physician: Perla Phillips MD Discharge provider: Abimael Perez MD Summary Hospital Course Discharge Diagnosis: S/P oversew gastric perforation, omental patch Hospital Course: Patient presents to ED 08/22/25 with free air. Taken to OR 08/22 where oversew of gastric perforation with omental patch performed. Patient had NG decompression for 48 hours, then started on clear liquids. He tolerated diet progression without n/v. RUQ drains did not change in volume or character. The drainage volumes continue to decrease and they were removed on POD#5. By POD#6, he was AVSS, tolerating regular diet without n/v and having bowel activity. See d/c instructions. Status at Discharge Cognitive/behavioral status at discharge: oriented Functional status at discharge: independent ambulation Overall status at discharge: patient is progressing back to baseline Time Spent with Patient Time spent: Greater than 30 minutes Exam Vital Signs (past 8 hours): - 08/28/25 03:08 08/28/25 08:36 08/28/25 09:54 Temperature 98.1 F Pulse Rate 83 68 84 Respiratory Rate 20 18 Blood Pressure 134/60 Pulse Oximetry 95 92 93 Oxygen Delivery Method Room Air Oxygen Flow Rate 0 Fraction of Inspired Oxygen 21 Fraction of Inspired Oxygen 21 SaO2/FiO2 Ratio 438 Oxygen Delivery Method Room Air Oxygen Flow Rate 0 Narrative Exam Narrative: Const General: comfortable and no acute distress Orientation: alert and oriented x3 Resp Effort & Inspection: normal respiratory effort and able to speak in complete sentences Cardio Rate: regular rate GI Palpation: soft, midline dressing CDI, pain appropriate for postop, drain sites without erythema or drainage. Midline wound without erythema or drainage Extrem General: no pedal edema and no calf tenderness Objective Labs 08/24/25 05:00 08/28/25 06:42 Labs: Laboratory Results - last 24 hr 08/28/25 06:42 Sodium 139 Potassium 4.0 Chloride 99 Carbon Dioxide 35 H BUN 14 Creatinine 0.54 L Estimated GFR > 60 BUN/Creatinine Ratio 25.9 H Glucose 100 H Calcium 8.6 Phosphorus 4.3 D Albumin 3.1 L PFSH Social History household members: spouse Smoking Status: Current every day smoker alcohol intake: current Discharge Assessment & Plan Assessment and Plan Assessment: Gastric perforation, s/p oversew/omental patch 08/22/25 Plan of Treatment: Home today F/U Dr. San See d/c instructions Discharge Plan Discharge Plan Patient Disposition: Home Provider Discharge Comment: Diet as tolerated, eat small meals, avoid spicy or acidic foods, bland diet DO NOT drink carbonated drinks Take omeprazole and carafate as indicated Call Dr. San's office for f/u appointment in 2 weeks Call for fever >101, short of breath, drainage from incisions or spreading redness Use Miralax as needed for daily BM, avoid constipation Take prescribed pain meds as usual Avoid NSAIDs like aspirin, aleve, ibuprofen Tylenol is okay to take Avoid lifting >10lbs for 8 weeks Call office Friday for work note, paperwork Shower OK, avoid swimming for 2 weeks Discharge orders & Medications Prescriptions: New omeprazole 40 mg capsule,delayed release(DR/EC) 40 mg PO BID Qty: 60 3RF sucralfate [Carafate] 100 mg/mL suspension 10 ml PO QID Qty: 500 0RF Rx Instructions: swish in mouth and swallow; use after food/drink Continued oxycodone-acetaminophen 5-325 mg tablet 2 tab PO .COMPLEX Rx Instructions: 2 tabs orally; albuterol sulfate 2.5 mg /3 mL (0.083 %) solution for nebulization 2.5 mg inhalation TID albuterol sulfate 90 mcg/actuation HFA aerosol inhaler 2 inh inhalation Q4H PRN (Reason: shortness of breath or wheezing) atorvastatin 20 mg tablet 20 mg PO DAILY cyclobenzaprine 10 mg tablet 10 mg PO BID PRN (Reason: muscle spasm) duloxetine 30 mg capsule,delayed release(DR/EC) 30 mg PO DAILY furosemide 20 mg tablet 20 mg PO DAILY gabapentin 600 mg tablet 600 mg PO BID lisinopril 10 mg tablet 10 mg PO DAILY meloxicam 15 mg tablet 15 mg PO DAILY montelukast 10 mg tablet 10 mg PO .QD ropinirole 0.5 mg tablet 1 mg PO BEDTIME Rx Instructions: 0.5 mg to 1 mg 1 to 2 hours before bedtime Follow up/Referrals: Reginaldo San MD [Physician, General Surgery] Perla Phillips MD [Primary Care Provider, Medical] Diet/Activity/Treatments Diet comment: bland diet without carbonation Activity: No lifting >10lbs for 8 weeks Skin/Wound/Dressing Care Report to your healthcare provider any signs of infection, such as:: chills, fever, night sweats, increased pain, unusual drainage and unusual redness Visit Report/Discharge Packet Instructions: DI for Prescription Opioid Use Stand Alone Forms: [employer], Patient Portal/API, Stroke Signs & Symptoms, Influenza Vaccine Info, Notice of Privacy Practices, Inpatient vs Outpatient, Pneumococcal Vaccine Info, Pt. Rights & Responsibilities Discharge Data Primary Care Provider: Perla Phillips Quality VTE Deep Vein Thrombosis/Pulmonary Embolism Present on Admission: No [facility] PROFEE Charge Codes Discharge inpatient/observation: [id number]
--- NOTE | 2025-08-28 13:42 | CM.DPC ---
DCP Discharge Home Per Surgeon, pt tolerating diet and pain is controlled and able to ambulate and had bm and medically stable to d/c home today with outpt f/u. No identified barriers to discharge. Patient to d/c home today via family POV and outpt f/u. No further discharge planning needs at this time. LEANNE Valero
== END 2025-08-28 12:37 | disposition home or self-care (01) | DRG 328 ==
LOC: ED 15:42 → AC 19:22 → ICU 23:03
PROVIDERS: Emergency Medicine; Surgery; Admitting Provider Surgery; Emergency Provider Family Medicine; PCP Family Medicine; Referring Provider Family Medicine; Visit Provider Surgery
PROC: 0DQ60ZZ Repair Stomach, Open Approach (ICD-10-PCS; CPT 49000; principal; 2025-08-22 19:30)
DX: K25.5 Chronic or unspecified gastric ulcer with perforation (principal); J45.909 Unspecified asthma, uncomplicated; I10 Essential (primary) hypertension; F17.200 Nicotine dependence, unspecified, uncomplicated; R00.0 Tachycardia, unspecified
CPT/HCPCS: 36415; 71046; 74177; 80048; 80053; 80069; 83690; 83735; 85007; 85025; 87797; 93005; 93010; 94640; 94762; 96374; 96375; 99284; 99406; J0131; J0330; J1100; J1171; J1650; J1885; J2250; J2405; J2470; J2543; J2704; J3010; J3475; J7030; J7050; J7120; J7613